=== PATIENT | male | born 1980 | race African-American/Black ===

== ENCOUNTER 2019-07-26 19:21 | Emergency (ER) | payer BC ==
[~2019-07-26] VITALS: Ht 200.7 cm; Wt 136.1 kg
[2019-07-26 22:47] VITALS: BP 101/53
[2019-07-26] MEDS ORDERED: CYCLOBENZAPRINE10 MG PO (22:53)
[2019-07-26] MEDS ORDERED: MEDROLDOSEPACK PO (22:53)
[2019-07-26] MEDS ORDERED: NORCO 10-325 T1 EACH PO (22:53)
== END 2019-07-26 23:10 | disposition home or self-care (01) ==
LOC: ER 19:21
DX: M54.5 Low back pain (principal); G89.29 Other chronic pain